=== PATIENT | male | born 1970 | race Caucasian/White ===

== ENCOUNTER 2018-08-22 15:29 | Emergency (ER) | payer OTHER ==
[~2018-08-22] VITALS: Ht 172.7 cm; Wt 94.3 kg
[~2018-08-22 15:29] MED LIST: ALBU0.0912 IH
[2018-08-22 15:47] VITALS: BP 119/75
--- NOTE | 2018-08-22 16:03 | NUR ---
CALLED [place] AND COMFIRMED THE REPORT OF ROBERT, CASE # [id number].
--- NOTE | 2018-08-22 17:08 | NUR ---
Patient ambulated to bed 4. RN evaluating patient at bedside.
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
--- NOTE | 2018-08-22 20:21 | NUR ---
BACITRACIN AND NON-ADHERENT DRESSING APPLIED TO LEFT CALF LACERATION. PEDIAL PULSES WBL BL. SKIN WARM AND DRY, NO SWELLING, MILD REDNESS TO SIGHT.
[2018-08-22] MEDS ORDERED: BACITRACIN OINT 500 UNITS/GM PKT TP ONE (20:25)
--- NOTE | 2018-08-22 20:30 | NUR ---
PT WOUND COVERED WITH NON ADHERENT DRESSING AND WRAPPED WITH COFLEX TAPE AFTER BACITRACIN APPLIED. +CSM
--- NOTE | 2018-08-22 21:00 | NUR ---
Patient discharged with v/s stable. Patient acting appropriatly, states pain is 0/10 at this time. Written and verbal after care instructions given and explained. Patient alert, oriented and verbalized understanding of instructions. Ambulatory with steady gait. All questions addressed prior to discharge. ID band removed. Patient advised to follow up with PMD. Rx of Naprosyn, and Bacitracin given. Patient educated on indication of medication including possible reaction and side effects. Opportunity to ask questions provided and answered.
[2018-08-22 21:06] VITALS: BP 123/68
== END 2018-08-22 21:00 | disposition home or self-care (01) ==
LOC: MED 15:29
DX: S81.812A Laceration without foreign body, left lower leg, initial encounter (principal); J45.909 Unspecified asthma, uncomplicated; I10 Essential (primary) hypertension; E78.00 Pure hypercholesterolemia, unspecified; Z79.899 Other long term (current) drug therapy; X99.1XXA Assault by knife, initial encounter; Y93.89 Activity, other specified; Y92.89 Other specified places as the place of occurrence of the external cause; Y99.8 Other external cause status
CPT/HCPCS: 90471; 90715; 99283

== ENCOUNTER 2018-09-14 13:22 | Emergency (ER) | payer OTHER ==
[~2018-09-14] VITALS: Ht 172.7 cm; Wt 93.9 kg
[2018-09-14 13:26] VITALS: BP 118/78
--- NOTE | 2018-09-14 13:30 | NUR ---
Note ramírez in ED - 09/14/18 at 1406 by [email or web address] C/O LACERATION TO L INSIDE THIGH APPROX. 2CM, BLEEDING CONTROLLED. PT STATES IT HAPPENED APPROX. 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 LAST TETANUS APPROX 2 WEEKS AGO AT [facility]. M/S FUNCTION INTACT, CAP REFIL <3 SECONDS.
--- NOTE | 2018-09-14 13:31 | NUR ---
TO BED 7 WITH STEADY GAIT
--- NOTE | 2018-09-14 13:32 | NUR ---
PT AMBULATED TO ER BED 06
--- NOTE | 2018-09-14 13:33 | NUR ---
Patient being evaluated by DR GONZALEZ at bedside.
--- NOTE | 2018-09-14 13:33 | NUR ---
C/O LACERATION TO L INSIDE THIGH APPROX. 2CM, BLEEDING CONTROLLED. PT STATES IT HAPPENED APPROX. 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 LAST TETANUS APPROX 2 WEEKS AGO AT [facility]. M/S FUNCTION INTACT, CAP REFIL <3 SECONDS.
--- NOTE | 2018-09-14 13:35 | NUR ---
LAC REPAIR KIT SET UP AT BEDSIDE, DR. GONZALEZ AWARE
[2018-09-14] MEDS ORDERED: LIDOCAINE 1% 500 MG/50 ML VIAL INJ SCH (13:40)
--- NOTE | 2018-09-14 13:50 | NUR ---
WOUND CARE COMPLETED WITH BACITRACIN APPLIED TOPICALLY, 4X4 NON ADHESIVE GAUZE, WRAPPED WITH DRESS PRERNA.
[2018-09-14] MEDS ORDERED: LIDOCAINE MPF 1% - 5 mL VIAL 10 ML ONE (13:51)
[2018-09-14 14:00] VITALS: BP 118/78
--- NOTE | 2018-09-14 14:00 | NUR ---
Patient discharged with v/s stable. Written and verbal after care instructions given and explained. Patient verbalized understanding. Ambulatory with steady gait. All questions addressed prior to discharge. Advised to follow up with PMD.
[2018-09-14] MEDS ORDERED: BACITRACIN OINT 500 UNITS/GM PKT TP ONE ×2 (14:01→14:10)
== END 2018-09-14 14:00 | disposition home or self-care (01) ==
LOC: MED 13:22
DX: S71.112A Laceration without foreign body, left thigh, initial encounter (principal); S93.401A Sprain of unspecified ligament of right ankle, initial encounter; J45.909 Unspecified asthma, uncomplicated; I10 Essential (primary) hypertension; E78.00 Pure hypercholesterolemia, unspecified; Z79.899 Other long term (current) drug therapy; W26.8XXA Contact with other sharp object(s), not elsewhere classified, initial encounter; Y93.89 Activity, other specified; Y92.89 Other specified places as the place of occurrence of the external cause; Y99.8 Other external cause status
CPT/HCPCS: 12001; 99283; J2001

== ENCOUNTER 2020-03-14 14:25 | Emergency (ER) | payer OTHER ==
[~2020-03-14] VITALS: Ht 175.3 cm; Wt 95.3 kg
[2020-03-14 15:08] VITALS: BP 143/89
[2020-03-14 16:25] VITALS: BP 143/89
--- NOTE | 2020-03-14 16:25 | NUR ---
Patient discharged with v/s stable. Written and verbal after care instructions given and explained. Patient alert, oriented and verbalized understanding of instructions. Ambulatory with steady gait. All questions addressed prior to discharge. ID band removed. Patient advised to follow up with PMD. Rx of Promethazine, Tylenol given. Patient educated on indication of medication including possible reaction and side effects. Opportunity to ask questions provided and answered.
== END 2020-03-14 16:25 | disposition home or self-care (01) ==
LOC: MED 14:25
DX: J02.9 Acute pharyngitis, unspecified (principal); Z20.828 Contact with and (suspected) exposure to other viral communicable diseases; R50.9 Fever, unspecified; J45.909 Unspecified asthma, uncomplicated; I10 Essential (primary) hypertension; Z98.890 Other specified postprocedural states; Z79.899 Other long term (current) drug therapy
CPT/HCPCS: 99283

== ENCOUNTER 2022-03-19 16:23 | Emergency (ER) | payer OTHER ==
[~2022-03-19] VITALS: Ht 175.3 cm; Wt 98.4 kg
[2022-03-19 17:02] VITALS: BP 149/91
--- NOTE | 2022-03-19 17:02 | NUR ---
PT AMBULATED TO BED 02
[2022-03-19] MEDS ORDERED: ALBUTEROL SULFATE/IPRATROPIU 3 ML SOL IH ONE (17:10)
[2022-03-19 17:28] LABS: BASOPHILS # (AUTO) 0.1 K/uL (0.00-0.22); BASOPHILS % (AUTO) 0.9 % (0.0-2.0); EOSINOPHILS # (AUTO) 0.2 K/uL (0-0.4); EOSINOPHILS % (AUTO) 1.8 % (0.0-4.0); HEMATOCRIT 43.2 % (36-52); HEMOGLOBIN 14.9 g/dL (12.0-18.0); LYMPHOCYTES # (AUTO) 2.9 K/uL (2.0-11.5); LYMPHOCYTES % (AUTO) 23.6 % (20.5-51.1); MEAN CORPUSCULAR HEMOGLOBIN 32 pg (27-31); MEAN CORPUSCULAR HGB CONC 34 g/dL (33-37); MEAN CORPUSCULAR VOLUME 94.2 fL (80-94); MONOCYTES # (AUTO) 0.9 K/uL (0.8-1.0); MONOCYTES % (AUTO) 7.3 % (1.7-9.3); NEUTROPHILS # (AUTO) 8.1 K/uL (1.8-7.7); NEUTROPHILS % (AUTO) 66.4 % (42.2-75.2); PLATELET COUNT (AUTO) 295 K/uL (140-450); RED BLOOD CELL COUNT(AUTO) 4.59 MIL/uL (4.20-6.10); RED CELL DISTRIBUTION WIDTH 12.5 % (11.6-13.7); WHITE BLOOD COUNT (AUTO) 12.1 K/uL (4.8-10.8)
--- NOTE | 2022-03-19 17:30 | NUR ---
XRAY BEDSIDE TO DO CHEST XRAY.
[2022-03-19] MEDS ORDERED: METOCLOPRAMIDE 10 MG/2 ML INJ VIAL IM ONE (17:50)
[2022-03-19] MEDS ORDERED: PANTOPRAZOLE 40 MG TABEC PO ONE (17:50)
[2022-03-19 17:53] LABS: ALBUMIN 3.9 g/dL (3.4-5.0); ANION GAP 15.3 (8-16); ASPARTATE AMINOTRANSFERASE 26 U/L (15-37); CARBON DIOXIDE 24.2 mmol/L (21-32); CHLORIDE 107 mmol/L (98-107); CREATININE 1.5 mg/dL (0.6-1.3); GFR ARICAN-AMERICAN 64 mL/min (>90); GLUCOSE 95 mg/dL (74-106); POTASSIUM 3.5 mmol/L (3.5-5.1); SODIUM SERUM 143 mmol/L (136-145); TOTAL BILIRUBIN 0.8 mg/dL (0.0-1.0); UREA NITROGEN, BLOOD 16 mg/dL (7-18)
[2022-03-19] MEDS ORDERED: BACLOFEN 10 MG TAB PO SCH (18:35)
[2022-03-19] MEDS ORDERED: PROM6.2589 PO (18:36)
--- NOTE | 2022-03-19 19:24 | NUR ---
PT WAS MEDICATED WITH BECLOFEN PER MD ORDER. REPORT ENDORSED TO KEVIN. GOMES. OFF DUTY.
[2022-03-19 19:33] VITALS: BP 132/87
== END 2022-03-19 19:33 | disposition home or self-care (01) ==
LOC: MED 16:23
DX: R06.6 Hiccough (principal); R06.02 Shortness of breath; R10.13 Epigastric pain; J45.909 Unspecified asthma, uncomplicated; I10 Essential (primary) hypertension; E78.5 Hyperlipidemia, unspecified; F12.90 Cannabis use, unspecified, uncomplicated; Z98.890 Other specified postprocedural states; Z79.899 Other long term (current) drug therapy
CPT/HCPCS: 36415; 71045; 80053; 84484; 85025; 94640; 96372; 99284; J2765; Q0092